=== PATIENT | male | born 1955 | race Two or more races ===

== ENCOUNTER 2019-10-16 12:57 | Emergency (ER) | payer SELFPAY ==
[~2019-10-16] VITALS: Ht 162.6 cm; Wt 88.0 kg
[2019-10-16] MEDS ORDERED: IBUPROFEN 600MG TABLET PO ONE (14:00)
[2019-10-16] MEDS ORDERED: TRAMADOL 50MG TABLET PO ONE (15:15)
[2019-10-16 16:07] VITALS: BP 138/74
== END 2019-10-16 16:08 | disposition home or self-care (01) ==
LOC: ER 13:11
DX: M79.605 Pain in left leg (principal); M79.604 Pain in right leg; E11.9 Type 2 diabetes mellitus without complications; F19.10 Other psychoactive substance abuse, uncomplicated; Z59.0 Homelessness
CPT/HCPCS: 82962; 93970; 99284